=== PATIENT | female | born 1955 | race Caucasian/White ===

== ENCOUNTER → 2016-08-09 | Emergency (ER) | payer OTHER ==
[~2016-08-09] MED LIST: ALBUTEROL SO4 2.5/IPRATROPIUM 0.5 INH SOL 3 ML VIAL.NEB. NEB ONE; ASPIRIN 81 MG CHEWABLE TABLETS ONE; ASPIRIN 81 MG CHEWABLE TABLETS PO ONE
[2016-08-09 16:05] VITALS: BMI 29.6
[2016-08-09 17:09] LABS: BASOPHIL 0.7 % (0-2.0); EOSINOPHIL 2.1 % (0-4.5); MCH 29.7 pg (25.7-33.7); MCHC 33.3 g/dl (32.0-36.0); MEAN CELL VOLUME 89.3 fl (80-96); MEAN PLT VOLUME 9.5 fl (7.5-11.1); NEUTROPHILS 50.1 % (42.8-82.8); PLATELET COUNT 205 K/MM3 (134-434); RDW 13.8 % (11.6-15.6); WHITE BLOOD COUNT 7.8 K/mm3 (4.0-10.0)
--- NOTE | 2016-08-09 17:27 | PDOC ---
History of Present Illness - General History Source: Patient Exam Limitations: No Limitations <Nolan Navasie - Last Filed: 08/09/16 19:40> <Emmy Solitario - Last Filed: 08/09/16 21:59> - General Chief Complaint: Chest Pain Stated Complaint: DIFFICULTY BREATHING - History of Present Illness Initial Comments: 08/09/16 17:29 The patient is a 60-year-old female, with a significant past medical history of COPD and emphysema, who presents to the ED with 3 days of chest pain and shortness of breath. The patient describes the pain as chest heaviness that is worsened with deep inspiration. She states that the symptoms she is experiencing is similar to her prior visit to the hospital when she discovered that she had a collapsed lung. Her recent EKG appeared normal and the pts last stress test was done about 6 months ago and was also normal. Patient does report diaphoresis. Pt denies any fever, chills, nausea, vomiting, diarrhea, or abdominal pain. The patient denies any hx of blood clots or lower extremity swelling. PCP: Dr. Guerrero [employer] Work Supervisor: Dr. Anthony (Bruna Navas) Past History <Bruna Navas - Last Filed: 08/09/16 19:40> - Past Medical History Anemia: Yes Asthma: No Cancer: No Cardiac Disorders: No CVA: No COPD: Yes CHF: No Dementia: No Diabetes: No GI Disorders: Yes (DYSPEPSIA) Disorders: No HTN: No Hypercholesterolemia: Yes Liver Disease: No Seizures: No Thyroid Disease: No Other medical history: SPONT. PNEUMOTHORAX - Surgical History Abdominal Surgery: No Appendectomy: No Cardiac Surgery: No Cholecystectomy: No Lung Surgery: No Neurologic Surgery: No Orthopedic Surgery: No - Psycho/Social/Smoking Cessation Hx Anxiety: Yes Suicidal Ideation: No Smoking Status: Yes Smoking History: Former smoker Have you smoked in the past 12 months: No Number of Cigarettes Smoked Daily: 0 If you are a former smoker, when did you quit?: 20 YRS Information on smoking cessation initiated: No Hx Alcohol Use: No Drug/Substance Use Hx: No Substance Use Type: None Hx Substance Use Treatment: No <Emmy Solitario - Last Filed: 08/09/16 21:59> - Past Medical History Allergies/Adverse Reactions: Allergies Allergy/AdvReac Type Severity Reaction Status Date / Time No Known Allergies Allergy Verified 08/09/16 16:37 Home Medications: Ambulatory Orders Escitalopram Oxalate [Lexapro -] 10 mg PO DAILY 08/09/16 Tiotropium Mcgregor [Spiriva] 1 inh IH DAILY 08/09/16 Cardiac Specific PMH - Complaint Specific PMHX Pacemaker: No <Emmy Solitario - Last Filed: 08/09/16 21:59> Review of Systems - Review of Systems Able to Perform ROS?: Yes <Bruna Navas - Last Filed: 08/09/16 19:40> <Emmy Solitario - Last Filed: 08/09/16 21:59> - Review of Systems Comments:: 08/09/16 17:29 GENERAL/CONSTITUTIONAL: No fever or chills. No weakness. +diaphoresis HEAD, EYES, EARS, NOSE AND THROAT: No change in vision. No ear pain or discharge. No sore throat. CARDIOVASCULAR: +chest pain or shortness of breath. RESPIRATORY: No cough, wheezing, or hemoptysis. SKIN: No rash GASTROINTESTINAL: No nausea, vomiting, diarrhea or constipation. GENITOURINARY: No dysuria, frequency, or change in urination. MUSCULOSKELETAL: No joint or muscle swelling or pain. No neck or back pain. NEUROLOGIC: No headache, vertigo, loss of consciousness, or change in strength/ sensation. ENDOCRINE: No increased thirst. No abnormal weight change. HEMATOLOGIC/LYMPHATIC: No anemia, easy bleeding, or history of blood clots. ALLERGIC/IMMUNOLOGIC: No hives or skin allergy. (Bruna Navas) *Physical Exam <Bruna Navas - Last Filed: 08/09/16 19:40> <Emmy Solitario - Last Filed: 08/09/16 21:59> - Vital Signs Last Vital Signs Temp Pulse Resp BP Pulse Ox 98.4 F 73 17 130/66 96 08/09/16 20:18 08/09/16 20:18 08/09/16 20:18 08/09/16 20:18 08/09/16 20:18 - Physical Exam Comments: 08/09/16 17:33 GENERAL: Awake, alert, and fully oriented, in no acute distress HEAD: No signs of trauma ENT: Auricles normal inspection, hearing grossly normal, nares patent, oropharynx clear EYES: PERRLA, EOMI, sclera anicteric, conjunctiva clear without exudates. Moist mucosa. NECK: Normal ROM, supple, no lymphadenopathy, JVD, or masses LUNGS: Breath sounds equal, clear to auscultation bilaterally. No wheezes, and no crackles HEART: Regular rate and rhythm, normal S1 and S2, no murmurs, rubs or gallops ABDOMEN: Soft, nontender, normoactive bowel sounds. No guarding, no rebound. No masses EXTREMITIES: Normal range of motion, no edema. No clubbing or cyanosis. No cords, erythema, or tenderness NEUROLOGICAL: Normal speech. SKIN: Warm, Dry, normal turgor, no rashes or lesions noted (Bruna Navas) Heart Score/ECG Review - History History: Slightly suspicious - Electrocardiogram EKG: Normal - Age Age: 45-65 - Risk Factors Risk Factors Heart Score: Yes Hx Hypertension, Yes Smoking History Based on the list above the patient has:: 1-2 risk factors - Troponin Troponin: </= normal limit - Score Heart Score - Total: 2 #1 ECG reviewed & interpreted by me at: 16:15 General ECG Interpretation: Sinus Rhythm, Normal Rate (72), Normal Intervals, No acute ischemic changes Compared to previous ECG there are: No significant change - ECG Intrepretation Rhythm: Regular Rhythm - [place]: Normal <Emmy Solitario - Last Filed: 08/09/16 21:59> ED Treatment Course - LABORATORY CBC & Chemistry Diagram: 08/09/16 16:45 08/09/16 16:45 <Bruna Navas - Last Filed: 08/09/16 19:40> - LABORATORY CBC & Chemistry Diagram: 08/09/16 16:45 08/09/16 16:45 <Emmy Solitario - Last Filed: 08/09/16 21:59> - ADDITIONAL ORDERS Additional order review: Laboratory Results 08/09/16 08/09/16 08/09/16 20:45 16:45 16:45 Sodium 141 Potassium 4.1 Chloride 108 H Carbon Dioxide 23 D Anion Gap 10 BUN 15 Creatinine 0.6 Creat Clearance w eGFR > 60 Random Glucose 87 Calcium 9.3 Total Bilirubin 0.3 D AST 19 D ALT 34 D Alkaline Phosphatase 58 Creatine Kinase 67 64 Troponin I < 0.02 < 0.02 Total Protein 6.6 Albumin 4.1 D 08/09/16 16:45 RBC 4.39 D MCV 89.3 MCHC 33.3 RDW 13.8 MPV 9.5 Neutrophils % 50.1 Lymphocytes % 39.8 D Monocytes % 7.3 Eosinophils % 2.1 Basophils % 0.7 - RADIOLOGY Radiology Studies Ordered: Category Date Time Status CHEST PA & LAT [RAD] Stat Radiology 08/09/16 16:31 Taken - Medications Given in the ED: ED Medications Discontinued Medications Generic Name Dose Route Start Last Admin Trade Name Mike PRN Reason Stop Dose Admin Albuterol/Ipratropium 1 amp 08/09/16 16:43 08/09/16 17:07 Duoneb - NEB 08/09/16 16:44 1 amp ONCE ONE Administration Aspirin 162 mg 08/09/16 16:43 08/09/16 17:06 Asa - PO 08/09/16 16:44 162 mg ONCE ONE Administration Medical Decision Making <Bruna Navas - Last Filed: 08/09/16 19:40> <Emmy Solitario - Last Filed: 08/09/16 21:59> - Medical Decision Making 08/09/16 18:44 Dr. Guerrero was paged and notified via phone service. Second page was placed at 19:41. (Bruna Navas) 08/09/16 17:24 60 yo F with h/o emphysema, copd, bullae and h/o spont ptx, here with c/o chest pain. no n/v no fever or chills. does have cough .. here today because c/o chest heaviness, started 3 days ago. no f/c. not plueritic. no mod or aggravating factors. has albuterol but hasn't used becuase it was . uses spiriva daily. feels similar to prior when she had the ptx. no leg swelling. no ho pe or dvt. no radiation. does have mild sob. she had a stress test ~6 mo ago which was negative per pt. no family h/o cad. on exam: awake alert lungs clear nowheeze no crackles. heart RRR no mr/g. abd soft NT ext WWP. no edema no calf tendenres.s nuero awake alert oriented x 3 moves all ext. no weakness. differential copd, angina, ptx infeciton such as pna. pln ekg labs asa duoneb, and cxr. 08/09/16 21:50 pt with negative stress test in the last 6 months. no ptx on xray. rpt trop negative at 4 hours. will have follow up with outp with dr. guerrero. given referral to cardiology. dr. guerrero paged 3 x no response. dc with warning instructions. and albuterol inhaler rx. recommend asa daily. (Emmy Solitario) *DC/Admit/Observation/Transfer <Bruna Navas - Last Filed: 08/09/16 19:40> - Discharge Dispostion Admit: No <Emmy Solitario - Last Filed: 08/09/16 21:59> Diagnosis at time of Disposition: COPD (chronic obstructive pulmonary disease) - Discharge Dispostion Disposition: HOME - Referrals Referrals: Trevor Guerrero MD [Primary Care Provider] - Edwin Banks MD [Staff Physician] - - Patient Instructions Printed Discharge Instructions: DI for Atypical Chest Pain Additional Instructions: you should follow up with your cardiogist. call to schedule. if you do not have you can follow up with dr banks, see referral list for number . you should take baby aspirin daily 81 mg . return for recurrent pain . use albuterol 2 puffs inhaled every 4 hrs as needed for wheezing or coughing. - Attestations Scribe Attestion: 08/09/16 17:35 Documentation prepared by Bruna Navas, acting as medical office scheduler for Emmy Solitario MD. (Bruna Navas)
[2016-08-09 17:52] LABS: ALBUMIN 4.1 g/dl (3.4-5.0); ANION GAP 10 (8-16); CALCIUM 9.3 mg/dL (8.5-10.1); CO2 23 mmol/L (21-32); CREATININE 0.6 mg/dL (0.55-1.02); GLUCOSE,RANDOM 87 mg/dL (74-106); SGOT/AST 19 U/L (15-37); SGPT/ALT 34 U/L (12-78)
[2016-08-09 17:53] LABS: ALK PHOS 58 U/L (45-117); BILIRUBIN,TOTAL 0.3 mg/dL (0.2-1.0); TOT PROT 6.6 g/dl (6.4-8.2)
[2016-08-09 17:54] LABS: TROPONIN I < 0.02 ng/ml (0.00-0.05)
[2016-08-09 21:39] LABS: TROPONIN I < 0.02 ng/ml (0.00-0.05)
[2016-08-09 22:19] VITALS: BP 136/70; PULSE 74; TEMP 97.9
--- NOTE | 2016-08-10 16:39 | EKG ---
Test Reason : Blood Pressure : / mmHG Vent. Rate : 072 BPM Atrial Rate : 072 BPM P-R Int : 152 ms QRS Dur : 078 ms QT Int : 396 ms P-R-T Axes : 044 -02 033 degrees QTc Int : 433 ms NORMAL SINUS RHYTHM NORMAL ECG WHEN COMPARED WITH ECG OF 11-JAN-2015 11:29, T WAVE AMPLITUDE HAS DECREASED IN ANTERIOR LEADS Confirmed by DERICK CARTER MD ([id number]) on 08/10/2016 4:39:32 PM Referred By: Confirmed By:DERICK CARTER MD
== END | disposition home or self-care (01) ==
LOC: JER 15:50
PROC: 3E0F7GC Introduction of Other Therapeutic Substance into Respiratory Tract, Via Natural or Artificial Opening (ICD-10-PCS; principal; 2016-08-09)
DX: J44.9 Chronic obstructive pulmonary disease, unspecified (principal); I10 Essential (primary) hypertension; Z87.891 Personal history of nicotine dependence; E78.00 Pure hypercholesterolemia, unspecified; J93.83 Other pneumothorax
CPT/HCPCS: 36415; 71020-TC; 80053; 82550; 84484; 85025; 93005; 93010; 99284-25

== ENCOUNTER 2021-03-24 10:42 | Inpatient (IN) | payer MEDICARE, OTHER ==
[2021-03-24] MEDS ORDERED: ALBUTEROL SO4 2.5/IPRATROPIUM 0.5 INH SOL 3 ML VIAL.NEB. NEB ONE ×2 (11:44→11:56)
[2021-03-24] MEDS ORDERED: SOTROVIMAB 500 MG in SODIUM CHLORIDE 100 ML IVPB ONE (11:47)
[2021-03-24] MEDS ORDERED: DEXAMETHASONE 4 MG TABLET (FP) PO ONE (13:00)
[2021-03-24 13:34] LABS: BASO % 0.5 % (0-2.0); EOS % 1.7 % (0-4.5); HEMATOCRIT 43.3 % (32.4-45.2); HEMOGLOBIN 13.9 GM/dL (10.7-15.3); LYMPH % 27.3 % (8-40); MCH 29.3 pg (25.7-33.7); MCHC 32.1 g/dl (32.0-36.0); MEAN CELL VOLUME 91.4 fl (80-96); MEAN PLT VOLUME 9.4 fl (7.5-11.1); MONO % 12.8 % (3.8-10.2); NEUT % 57.7 % (42.8-82.8); PLATELET COUNT 222 10^3/uL (134-434); RBC 4.74 M/mm3 (3.60-5.2); RDW 14.7 % (11.6-15.6); WHITE BLOOD COUNT 6.4 K/mm3 (4.0-10.0)
[2021-03-24] MEDS ORDERED: DEXAMETHASONE 4 MG TABLET (FP) ONE (13:41)
[2021-03-24] MEDS ORDERED: DEXAMETHASONE SOD PHOSPHATE 10 MG/1 ML VIAL ONE (13:42)
[2021-03-24 13:54] LABS: CALCIUM 9.4 mg/dL (8.5-10.1)
[2021-03-24 13:55] LABS: ALBUMIN 3.8 g/dl (3.4-5.0); BLOOD UREA NITROGEN 12.7 mg/dL (7-18)
[2021-03-24 13:57] LABS: CREATININE 0.7 mg/dL (0.55-1.3)
[2021-03-24] MEDS ORDERED: ALBUTEROL SO4 0.083% IH SOL 2.5 MG/3 ML VIAL.NEB. NEB PRN (13:58)
[2021-03-24 13:59] LABS: BILIRUBIN,TOTAL 0.4 mg/dL (0.2-1); TOT PROT 6.8 g/dl (6.4-8.2)
[2021-03-25] MEDS: ACETAMINOPHEN 325 MG TABLET (FP) PO PRN (07:49)
[2021-03-25 09:07] LABS: BASO % 0.7 % (0-2.0); EOS % 0.1 % (0-4.5); HEMATOCRIT 37.6 % (32.4-45.2); HEMOGLOBIN 12.5 GM/dL (10.7-15.3); LYMPH % 37.1 % (8-40); MCHC 33.2 g/dl (32.0-36.0); MEAN CELL VOLUME 90.4 fl (80-96); MEAN PLT VOLUME 8.9 fl (7.5-11.1); MONO % 10.4 % (3.8-10.2); NEUT % 51.7 % (42.8-82.8); PLATELET COUNT 223 10^3/uL (134-434); RBC 4.16 M/mm3 (3.60-5.2); RDW 14.3 % (11.6-15.6); WHITE BLOOD COUNT 5.4 K/mm3 (4.0-10.0)
[2021-03-25 09:30] LABS: CALCIUM 9.4 mg/dL (8.5-10.1)
[2021-03-25 09:32] LABS: ALBUMIN 3.7 g/dl (3.4-5.0)
[2021-03-25 09:33] LABS: BLOOD UREA NITROGEN 19.7 mg/dL (7-18)
[2021-03-25 09:36] LABS: CREATININE 0.7 mg/dL (0.55-1.3)
[2021-03-25 09:38] LABS: BILIRUBIN,TOTAL 0.4 mg/dL (0.2-1); TOT PROT 6.4 g/dl (6.4-8.2)
[2021-03-25] MEDS ORDERED: DEXAMETHASONE SOD PHOSPHATE 20 MG/5 ML VIAL IVPB SCH (10:00)
[2021-03-25] MEDS ORDERED: TIOTROPIUM BROMIDE 2.5 MCG (SPIRIVA) RESPIMAT INHALER IH SCH (10:00)
[2021-03-25] MEDS: ESCITALOPRAM OXALATE 10 MG TABLET PO SCH (10:01)
[2021-03-25] MEDS: ENOXAPARIN NA (PORCINE) 40 MG/0.4 ML DISP.SYRIN SQ SCH (10:01)
[2021-03-25 10:20] LABS: ERYTHROCYTE SEDIMENTATION RATE 12 mm/hr (0-30)
[2021-03-25] MEDS: DEXAMETHASONE SOD PHOSPHATE 4 MG/1 ML VIAL IVPB SCH (11:33)
[2021-03-25] MEDS: FENOFIBRIC ACID 135 MG CAP PO SCH (15:38)
[2021-03-25] MEDS: MONTELUKAST NA 10 MG TABLET PO SCH (15:38)
[2021-03-25] MEDS: FLUTICASONE/UMECLIDIN/VILANTER(100-62.5-25 TRELEGY ELLIPTA) INAHLER IH SCH (17:53)
[2021-03-25] MEDS: guaiFENesin 200 MG/10 ML 10 ML UNIT-DOSE CUPS PO PRN (21:02)
[2021-03-26 10:34] LABS: BASO % 0.4 % (0-2.0); EOS % 0.2 % (0-4.5); HEMATOCRIT 36.9 % (32.4-45.2); HEMOGLOBIN 12.5 GM/dL (10.7-15.3); LYMPH % 37.9 % (8-40); MCH 30.6 pg (25.7-33.7); MCHC 33.8 g/dl (32.0-36.0); MEAN CELL VOLUME 90.6 fl (80-96); MEAN PLT VOLUME 8.5 fl (7.5-11.1); MONO % 5.8 % (3.8-10.2); NEUT % 55.7 % (42.8-82.8); PLATELET COUNT 206 10^3/uL (134-434); RBC 4.07 M/mm3 (3.60-5.2); WHITE BLOOD COUNT 6.6 K/mm3 (4.0-10.0)
[2021-03-26] MEDS: MONTELUKAST NA 10 MG TABLET PO SCH (10:54)
[2021-03-26] MEDS: ESCITALOPRAM OXALATE 10 MG TABLET PO SCH (10:54)
[2021-03-26] MEDS: ENOXAPARIN NA (PORCINE) 40 MG/0.4 ML DISP.SYRIN SQ SCH (10:54)
[2021-03-26] MEDS: DEXAMETHASONE SOD PHOSPHATE 4 MG/1 ML VIAL IVPB SCH (10:54)
[2021-03-26] MEDS: FENOFIBRIC ACID 135 MG CAP PO SCH (10:54)
[2021-03-26] MEDS: FLUTICASONE/UMECLIDIN/VILANTER(100-62.5-25 TRELEGY ELLIPTA) INAHLER IH SCH (10:54)
[2021-03-26 10:57] LABS: ALBUMIN 3.5 g/dl (3.4-5.0); BLOOD UREA NITROGEN 20.3 mg/dL (7-18)
[2021-03-26 10:58] LABS: CREATININE 0.7 mg/dL (0.55-1.3)
[2021-03-26 11:00] LABS: BILIRUBIN,TOTAL 0.3 mg/dL (0.2-1); TOT PROT 6.2 g/dl (6.4-8.2)
[2021-03-26] MEDS ORDERED: REMDESIVIR 200 MG in SODIUM CHLORIDE 250 ML IVPB ONE (11:00)
[2021-03-26] MEDS: guaiFENesin 200 MG/10 ML 10 ML UNIT-DOSE CUPS PO PRN (16:14)
[2021-03-26] MEDS: ACETAMINOPHEN 325 MG TABLET (FP) PO PRN (16:14)
[2021-03-27] MEDS: DEXAMETHASONE SOD PHOSPHATE 4 MG/1 ML VIAL IVPB SCH (10:45)
[2021-03-27] MEDS: guaiFENesin 200 MG/10 ML 10 ML UNIT-DOSE CUPS PO PRN (10:46)
[2021-03-27] MEDS: FENOFIBRIC ACID 135 MG CAP PO SCH (10:46)
[2021-03-27] MEDS: REMDESIVIR 100 MG in SODIUM CHLORIDE 250 ML IVPB SCH (10:46)
[2021-03-27] MEDS: ENOXAPARIN NA (PORCINE) 40 MG/0.4 ML DISP.SYRIN SQ SCH (10:46)
[2021-03-27] MEDS: ESCITALOPRAM OXALATE 10 MG TABLET PO SCH (10:46)
[2021-03-27] MEDS: MONTELUKAST NA 10 MG TABLET PO SCH (10:46)
[2021-03-27] MEDS: FLUTICASONE/UMECLIDIN/VILANTER(100-62.5-25 TRELEGY ELLIPTA) INAHLER IH SCH (10:47)
[2021-03-27] MEDS: ACETAMINOPHEN 325 MG TABLET (FP) PO PRN (20:41)
[2021-03-28] MEDS: ACETAMINOPHEN 325 MG TABLET (FP) PO PRN ×3 (06:14→18:30)
[2021-03-28] MEDS: MONTELUKAST NA 10 MG TABLET PO SCH (10:08)
[2021-03-28] MEDS: ESCITALOPRAM OXALATE 10 MG TABLET PO SCH (10:08)
[2021-03-28] MEDS: FENOFIBRIC ACID 135 MG CAP PO SCH (10:08)
[2021-03-28] MEDS: DEXAMETHASONE SOD PHOSPHATE 4 MG/1 ML VIAL IVPB SCH (10:08)
[2021-03-28] MEDS: ENOXAPARIN NA (PORCINE) 40 MG/0.4 ML DISP.SYRIN SQ SCH (10:13)
[2021-03-28] MEDS: FLUTICASONE/UMECLIDIN/VILANTER(100-62.5-25 TRELEGY ELLIPTA) INAHLER IH SCH (10:20)
[2021-03-28] MEDS: REMDESIVIR 100 MG in SODIUM CHLORIDE 250 ML IVPB SCH (10:30)
[2021-03-28] MEDS ORDERED: SODIUM CHLORIDE NASAL SPRAY 44 ML BOTTLE NS PRN (12:00)
[2021-03-28] MEDS: guaiFENesin 200 MG/10 ML 10 ML UNIT-DOSE CUPS PO PRN ×2 (12:33→18:30)
[2021-03-28] MEDS: FLUTICASONE PROP 0.05% 16 GM NASAL SPRAY NS SCH (12:33)
[2021-03-29] MEDS: ENOXAPARIN NA (PORCINE) 40 MG/0.4 ML DISP.SYRIN SQ SCH (10:27)
[2021-03-29] MEDS: FENOFIBRIC ACID 135 MG CAP PO SCH (10:27)
[2021-03-29] MEDS: MONTELUKAST NA 10 MG TABLET PO SCH (10:27)
[2021-03-29] MEDS: ESCITALOPRAM OXALATE 10 MG TABLET PO SCH (10:27)
[2021-03-29] MEDS: DEXAMETHASONE SOD PHOSPHATE 4 MG/1 ML VIAL IVPB SCH (10:27)
[2021-03-29] MEDS: REMDESIVIR 100 MG in SODIUM CHLORIDE 250 ML IVPB SCH (10:28)
[2021-03-29] MEDS: FLUTICASONE PROP 0.05% 16 GM NASAL SPRAY NS SCH (10:29)
[2021-03-29] MEDS: FLUTICASONE/UMECLIDIN/VILANTER(100-62.5-25 TRELEGY ELLIPTA) INAHLER IH SCH (10:40)
[2021-03-29] MEDS: ACETAMINOPHEN 325 MG TABLET (FP) PO PRN (22:52)
[2021-03-30] MEDS: ESCITALOPRAM OXALATE 10 MG TABLET PO SCH (09:04)
[2021-03-30] MEDS: ENOXAPARIN NA (PORCINE) 40 MG/0.4 ML DISP.SYRIN SQ SCH (09:04)
[2021-03-30] MEDS: FLUTICASONE/UMECLIDIN/VILANTER(100-62.5-25 TRELEGY ELLIPTA) INAHLER IH SCH (09:04)
[2021-03-30] MEDS: MONTELUKAST NA 10 MG TABLET PO SCH (09:04)
[2021-03-30] MEDS: FENOFIBRIC ACID 135 MG CAP PO SCH (09:04)
[2021-03-30] MEDS: DEXAMETHASONE SOD PHOSPHATE 4 MG/1 ML VIAL IVPB SCH (09:04)
[2021-03-30] MEDS: FLUTICASONE PROP 0.05% 16 GM NASAL SPRAY NS SCH (09:12)
[2021-03-30] MEDS: REMDESIVIR 100 MG in SODIUM CHLORIDE 250 ML IVPB SCH (11:14)
[2021-03-31] MEDS: ESCITALOPRAM OXALATE 10 MG TABLET PO SCH (09:07)
[2021-03-31] MEDS: ENOXAPARIN NA (PORCINE) 40 MG/0.4 ML DISP.SYRIN SQ SCH (09:07)
[2021-03-31] MEDS: FENOFIBRIC ACID 135 MG CAP PO SCH (09:07)
[2021-03-31] MEDS: MONTELUKAST NA 10 MG TABLET PO SCH (09:08)
[2021-03-31] MEDS: FLUTICASONE PROP 0.05% 16 GM NASAL SPRAY NS SCH (09:08)
[2021-03-31] MEDS: FLUTICASONE/UMECLIDIN/VILANTER(100-62.5-25 TRELEGY ELLIPTA) INAHLER IH SCH (09:08)
[2021-03-31] MEDS: DEXAMETHASONE SOD PHOSPHATE 4 MG/1 ML VIAL IVPB SCH (09:08)
[2021-03-31] MEDS: ACETAMINOPHEN 325 MG TABLET (FP) PO PRN (09:10)
[2021-03-31 11:43] VITALS: TEMP 98.1
[2021-03-31 14:07] VITALS: BP 140/65; PULSE 75
== END 2021-03-31 14:20 | disposition home or self-care (01) | DRG 178 ==
LOC: JER 10:42 → JERBED 12:56 → J5S 20:18
PROVIDERS: ADMIT Internal Medicine; ATTEND Internal Medicine
PROC: XW033H6 Introduction of Other New Technology Monoclonal Antibody into Peripheral Vein, Percutaneous Approach, New Technology Group 6 (ICD-10-PCS; 2021-03-24)
PROC: XW033E5 Introduction of Remdesivir Anti-infective into Peripheral Vein, Percutaneous Approach, New Technology Group 5 (ICD-10-PCS; principal; 2021-03-26)
DX: U07.1 COVID-19 (principal); J44.1 Chronic obstructive pulmonary disease with (acute) exacerbation; E78.5 Hyperlipidemia, unspecified; F41.9 Anxiety disorder, unspecified
CPT/HCPCS: 36415; 71046-TC-FY; 80053; 83615; 85025; 85379; 85651; 86140; 93005; 93010; 94761; 99285-25; C9399; C9803; M0247; Q0247; U0003; U0005

== ENCOUNTER 2021-04-13 13:03 | Inpatient (IN) | payer OTHER ==
[2021-04-13 14:48] LABS: BASO % 0.9 % (0-2.0); EOS % 2.1 % (0-4.5); HEMATOCRIT 40.3 % (32.4-45.2); HEMOGLOBIN 13.6 GM/dL (10.7-15.3); LYMPH % 23.7 % (8-40); MCH 30.6 pg (25.7-33.7); MCHC 33.7 g/dl (32.0-36.0); MEAN CELL VOLUME 90.8 fl (80-96); MEAN PLT VOLUME 9.3 fl (7.5-11.1); MONO % 11.5 % (3.8-10.2); NEUT % 61.8 % (42.8-82.8); PLATELET COUNT 174 10^3/uL (134-434); RBC 4.44 M/mm3 (3.60-5.2); RDW 14.2 % (11.6-15.6); WHITE BLOOD COUNT 5.2 K/mm3 (4.0-10.0)
[2021-04-13 15:00] LABS: ACTIVATED PTT 29.4 SECONDS (25.2-36.5); INR 0.99 (0.83-1.09); PROTHROMBIN TIME (PATIENT) 11.4 SEC (9.7-13.0)
[2021-04-13 15:19] LABS: CHLORIDE 109 mmol/L (98-107); SODIUM 136 mmol/L (136-145)
[2021-04-13 15:22] LABS: ALBUMIN 3.4 g/dl (3.4-5.0); BLOOD UREA NITROGEN 17.4 mg/dL (7-18); CALCIUM 8.8 mg/dL (8.5-10.1); CO2 24 mmol/L (21-32); GLUCOSE,RANDOM 82 mg/dL (74-106); MAGNESIUM 2.3 mg/dL (1.8-2.4)
[2021-04-13 15:25] LABS: CREATININE 0.4 mg/dL (0.55-1.3); SGOT/AST 81 U/L (15-37)
[2021-04-13 15:27] LABS: BILIRUBIN,TOTAL 0.6 mg/dL (0.2-1); TOT PROT 6.6 g/dl (6.4-8.2)
[2021-04-13 15:28] LABS: ALK PHOS 38 U/L (45-117)
[2021-04-13] MEDS ORDERED: ACETAMINOPHEN 325 MG TABLET (FP) PO PRN (15:53)
[2021-04-13] MEDS ORDERED: SODIUM CHLORIDE NASAL SPRAY 44 ML BOTTLE NS PRN (15:53)
[2021-04-13] MEDS ORDERED: guaiFENesin 200 MG/10 ML 10 ML UNIT-DOSE CUPS PO PRN (15:53)
[2021-04-13] MEDS ORDERED: ALBUTEROL SO4 0.083% IH SOL 2.5 MG/3 ML VIAL.NEB. NEB PRN (15:53)
[2021-04-13 15:54] LABS: ANION GAP 4 MMOL/L (8-16); SGPT/ALT 53 U/L (13-61)
[2021-04-13] MEDS ORDERED: ASPIRIN 81 MG CHEWABLE TABLETS PO ONE (15:56)
[2021-04-13] MEDS ORDERED: ASPIRIN 81 MG CHEWABLE TABLETS ONE (17:35)
[2021-04-13 18:14] LABS: ALBUMIN 3.5 g/dl (3.4-5.0); BLOOD UREA NITROGEN 15.2 mg/dL (7-18)
[2021-04-13 18:17] LABS: CREATININE 0.5 mg/dL (0.55-1.3)
[2021-04-13 18:19] LABS: BILIRUBIN,TOTAL 0.5 mg/dL (0.2-1); TOT PROT 5.9 g/dl (6.4-8.2)
[2021-04-13] MEDS ORDERED: ALBUTEROL SO4 HFA INHALER IH PRN (20:41)
[2021-04-13] MEDS: HEPARIN NA (PORCINE) 5,000 UNITS/ML 1ML VIAL SQ SCH (22:05)
[2021-04-13 23:28] VITALS: BMI 30.4
[2021-04-14] MEDS ORDERED: PATIENT'S OWN MEDICATION (NON-FORMULARY) (Tiotropium Bromide [Spiriva] 1 PUFF Inh) IH SCH (10:00)
[2021-04-14] MEDS ORDERED: FENOFIBRIC ACID 135 MG CAP PO SCH (10:00)
[2021-04-14] MEDS ORDERED: FAMOTIDINE 20 MG TABLET PO SCH (10:00)
[2021-04-14] MEDS ORDERED: MONTELUKAST NA 10 MG TABLET PO SCH (10:00)
[2021-04-14] MEDS ORDERED: FLUTICASONE PROP 0.05% 16 GM NASAL SPRAY NS SCH (10:00)
[2021-04-14] MEDS ORDERED: FLUTICASONE/UMECLIDIN/VILANTER(100-62.5-25 TRELEGY ELLIPTA) INAHLER IH SCH (10:00)
[2021-04-14] MEDS ORDERED: ESCITALOPRAM OXALATE 10 MG TABLET PO SCH (10:00)
[2021-04-14] MEDS: HEPARIN NA (PORCINE) 5,000 UNITS/ML 1ML VIAL SQ SCH (10:57)
[2021-04-14 18:29] VITALS: BP 129/98; PULSE 83; TEMP 98.2
== END 2021-04-14 18:44 | disposition home or self-care (01) | DRG 179 ==
LOC: JER 13:03 → JERBED 15:48 → OBSVTOIN 15:55 → J4S 21:35
PROVIDERS: ADMIT Internal Medicine; ATTEND Internal Medicine
DX: U07.1 COVID-19 (principal); R07.89 Other chest pain; J44.9 Chronic obstructive pulmonary disease, unspecified; E78.5 Hyperlipidemia, unspecified; F41.9 Anxiety disorder, unspecified; E66.9 Obesity, unspecified; Z68.30 Body mass index [BMI] 30.0-30.9, adult
CPT/HCPCS: 36415; 71046-TC-FY; 71275-TC; 80048; 80053; 82550; 82553; 83735; 84484; 85025; 85379; 85610; 85730; 93005; 93010; 93308; 93971-TC; 99285-25; C9803; G0378; J1644; Q9967; U0003; U0005

== ENCOUNTER 2022-01-19 11:20 | Inpatient (IN) | payer OTHER ==
[2022-01-19] MEDS ORDERED: ACETAMINOPHEN 1000 MG/100 ML BAG IVPB ONE ×2 (12:08→19:09)
[2022-01-19] MEDS ORDERED: SODIUM CHLORIDE 0.9% 1000 ML INFUS.BAG IV ONE (12:08)
[2022-01-19] MEDS ORDERED: ACETAMINOPHEN INJECTION 100 ML IVPB ONE ×2 (12:32→19:26)
[2022-01-19 12:42] LABS: HEMATOCRIT 42.6 % (32.4-45.2); HEMOGLOBIN 14.1 G/dL (10.7-15.3); MCH 30.6 pg (25.7-33.7); MCHC 33.1 g/dl (32.0-36.0); MEAN CELL VOLUME 92.6 fl (80-96); MEAN PLT VOLUME 8.3 fl (7.5-11.1); PLATELET COUNT 254.4 10^3/uL (134-434); RDW 14.5 % (11.6-15.6); WHITE BLOOD COUNT 17.2 10^3/uL (4.0-10.8)
[2022-01-19 12:46] LABS: INR 1.03 (0.83-1.09); PROTHROMBIN TIME (PATIENT) 11.8 SEC (9.7-13.0)
[2022-01-19 12:48] LABS: ACTIVATED PTT 27.7 SECONDS (25.2-36.5)
[2022-01-19 12:52] LABS: ALBUMIN 3.5 g/dl (3.4-5.0); BILIRUBIN,TOTAL 0.9 mg/dl (0.2-1); CALCIUM 8.6 mg/dl (8.5-10); CREATININE 0.6 mg/dl (0.55-1.3); TOT PROT 5.9 g/dl (6.4-8.2)
[2022-01-19 13:13] LABS: PLATELET ESTIMATE ADEQUATE
[2022-01-19] MEDS ORDERED: PIPERACILLIN/TAZOB 3.375 GM 3.375 GM in DEXTROSE 5%-WATER - 50 ML IVPB ONE (16:31)
[2022-01-19] MEDS ORDERED: PIPERACILLIN/TAZOBACTAM 3.375 GM VIAL IVPB ONE (16:45)
[2022-01-19] MEDS ORDERED: ALBUTEROL SO4 0.083% IH SOL 2.5 MG/3 ML VIAL.NEB. NEB PRN (17:04)
[2022-01-19] MEDS: PIPERACILLIN/TAZOB 3.375 GM 3.375 GM in DEXTROSE 5%-WATER - 50 ML IVPB SCH (17:19)
[2022-01-19] MEDS ORDERED: HEPARIN NA (PORCINE) 5,000 UNITS/ML 1ML VIAL SQ SCH (22:00)
[2022-01-20] MEDS: ACETAMINOPHEN 325 MG TABLET (FP) PO PRN ×2 (01:22→12:01)
[2022-01-20] MEDS: PIPERACILLIN/TAZOB 3.375 GM 3.375 GM in DEXTROSE 5%-WATER - 50 ML IVPB SCH ×4 (01:22→19:47)
[2022-01-20 08:42] LABS: ALBUMIN 2.9 g/dl (3.4-5.0); BILIRUBIN,TOTAL 0.9 mg/dl (0.2-1); CALCIUM 8.3 mg/dl (8.5-10); CREATININE 0.5 mg/dl (0.55-1.3); TOT PROT 4.9 g/dl (6.4-8.2)
[2022-01-20] MEDS ORDERED: FLUTICASONE/UMECLIDIN/VILANTER(100-62.5-25 TRELEGY ELLIPTA) INAHLER IH SCH (10:00)
[2022-01-20] MEDS ORDERED: MONTELUKAST NA 10 MG TABLET PO SCH (10:00)
[2022-01-20] MEDS ORDERED: FENOFIBRIC ACID 135 MG CAP PO SCH (10:00)
[2022-01-20] MEDS ORDERED: ESCITALOPRAM OXALATE 10 MG TABLET PO SCH (10:00)
[2022-01-20] MEDS ORDERED: PATIENT'S OWN MEDICATION (NON-FORMULARY) (Fenofibrate Nanocrystallized [Fenofibrate] 145 M PO SCH (10:00)
[2022-01-20] MEDS ORDERED: PANTOPRAZOLE 40 MG TABLET PO SCH (10:00)
[2022-01-20 15:15] LABS: BASO % 0.4 % (0-2.0); HEMATOCRIT 38.6 % (32.4-45.2); HEMOGLOBIN 12.3 GM/dL (10.7-15.3); LYMPH % 17.3 % (8-40); MCH 29.9 pg (25.7-33.7); MCHC 31.9 g/dl (32.0-36.0); MEAN CELL VOLUME 93.5 fl (80-96); MEAN PLT VOLUME 8.9 fl (7.5-11.1); MONO % 6.9 % (3.8-10.2); NEUT % 74.4 % (42.8-82.8); PLATELET COUNT 199 10^3/uL (134-434); RBC 4.13 M/mm3 (3.60-5.2); RDW 15.2 % (11.6-15.6); WHITE BLOOD COUNT 12.1 K/mm3 (4.0-10.0)
[2022-01-20] MEDS ORDERED: ALBUTEROL SO4 0.083% IH SOL 2.5 MG/3 ML VIAL.NEB. NEB PRN (19:40)
[2022-01-21] MEDS: PIPERACILLIN/TAZOB 3.375 GM 3.375 GM in DEXTROSE 5%-WATER - 50 ML IVPB SCH ×3 (02:31→17:10)
[2022-01-21] MEDS: ACETAMINOPHEN 325 MG TABLET (FP) PO PRN ×2 (02:31→10:54)
[2022-01-21 09:47] LABS: BASO % 0.4 % (0-2.0); EOS % 2.2 % (0-4.5); HEMATOCRIT 37.7 % (32.4-45.2); HEMOGLOBIN 12.4 GM/dL (10.7-15.3); LYMPH % 26.3 % (8-40); MCH 30.1 pg (25.7-33.7); MCHC 32.9 g/dl (32.0-36.0); MEAN CELL VOLUME 91.5 fl (80-96); MEAN PLT VOLUME 8.6 fl (7.5-11.1); MONO % 7.6 % (3.8-10.2); NEUT % 63.5 % (42.8-82.8); PLATELET COUNT 200 10^3/uL (134-434); RBC 4.12 M/mm3 (3.60-5.2); RDW 14.2 % (11.6-15.6)
[2022-01-21 09:59] LABS: CALCIUM 8.5 mg/dL (8.5-10.1)
[2022-01-21 10:00] LABS: ALBUMIN 2.7 g/dl (3.4-5.0); BLOOD UREA NITROGEN 9.8 mg/dL (7-18)
[2022-01-21 10:03] LABS: CREATININE 0.5 mg/dL (0.55-1.3)
[2022-01-21 10:05] LABS: BILIRUBIN,TOTAL 0.9 mg/dL (0.2-1); TOT PROT 5.2 g/dl (6.4-8.2)
[2022-01-21] MEDS: PANTOPRAZOLE 40 MG TABLET PO SCH (10:10)
[2022-01-21] MEDS: FLUTICASONE/UMECLIDIN/VILANTER(100-62.5-25 TRELEGY ELLIPTA) INAHLER IH SCH (10:11)
[2022-01-21] MEDS: ESCITALOPRAM OXALATE 10 MG TABLET PO SCH (10:11)
[2022-01-21] MEDS: FENOFIBRIC ACID 135 MG CAP PO SCH (10:54)
[2022-01-21] MEDS ORDERED: SODIUM CHLORIDE 1,000 ML IV SCH (12:45)
[2022-01-21] MEDS: MONTELUKAST NA 10 MG TABLET PO SCH (21:26)
[2022-01-22] MEDS: PIPERACILLIN/TAZOB 3.375 GM 3.375 GM in DEXTROSE 5%-WATER - 50 ML IVPB SCH ×3 (02:11→17:07)
[2022-01-22] MEDS: FENOFIBRIC ACID 135 MG CAP PO SCH (09:57)
[2022-01-22] MEDS: PANTOPRAZOLE 40 MG TABLET PO SCH (09:57)
[2022-01-22] MEDS: FLUTICASONE/UMECLIDIN/VILANTER(100-62.5-25 TRELEGY ELLIPTA) INAHLER IH SCH (09:57)
[2022-01-22] MEDS: ESCITALOPRAM OXALATE 10 MG TABLET PO SCH (09:57)
[2022-01-22 11:13] LABS: BASO % 0.9 % (0-2.0); EOS % 3.3 % (0-4.5); HEMOGLOBIN 12.4 GM/dL (10.7-15.3); MCH 30.2 pg (25.7-33.7); MCHC 32.8 g/dl (32.0-36.0); MEAN PLT VOLUME 8.5 fl (7.5-11.1); MONO % 8.1 % (3.8-10.2); NEUT % 57.7 % (42.8-82.8); PLATELET COUNT 211 10^3/uL (134-434); RBC 4.13 M/mm3 (3.60-5.2); RDW 14.4 % (11.6-15.6); WHITE BLOOD COUNT 5.7 K/mm3 (4.0-10.0)
[2022-01-22 11:21] LABS: ALBUMIN 2.9 g/dl (3.4-5.0); CALCIUM 8.6 mg/dL (8.5-10.1)
[2022-01-22 11:22] LABS: BLOOD UREA NITROGEN 7.1 mg/dL (7-18)
[2022-01-22 11:24] LABS: CREATININE 0.6 mg/dL (0.55-1.3)
[2022-01-22 11:26] LABS: BILIRUBIN,TOTAL 0.4 mg/dL (0.2-1); TOT PROT 5.5 g/dl (6.4-8.2)
[2022-01-22] MEDS ORDERED: FLUCONAZOLE 150 MG TABLET PO ONE (18:02)
[2022-01-22] MEDS: MONTELUKAST NA 10 MG TABLET PO SCH (22:44)
[2022-01-23 01:23] LABS: PH,URINE 6.5 (5.0-8.0); URINE APPEARANCE CLEAR; URINE BILIRUBIN NEGATIVE (NEGATIVE); URINE COLOR YELLOW; URINE GLUCOSE (UA) NEGATIVE (NEGATIVE); URINE KETONE NEGATIVE (NEGATIVE); URINE LEUK ESTERASE NEGATIVE (NEGATIVE); URINE NITRITE NEGATIVE (NEGATIVE); URINE PROTEIN NEGATIVE (NEGATIVE)
[2022-01-23] MEDS: PIPERACILLIN/TAZOB 3.375 GM 3.375 GM in DEXTROSE 5%-WATER - 50 ML IVPB SCH ×3 (02:17→19:20)
[2022-01-23] MEDS: PANTOPRAZOLE 40 MG TABLET PO SCH (10:09)
[2022-01-23] MEDS: FENOFIBRIC ACID 135 MG CAP PO SCH (10:09)
[2022-01-23] MEDS: ESCITALOPRAM OXALATE 10 MG TABLET PO SCH (10:09)
[2022-01-23] MEDS: FLUTICASONE/UMECLIDIN/VILANTER(100-62.5-25 TRELEGY ELLIPTA) INAHLER IH SCH (10:15)
[2022-01-23 11:49] LABS: BASO % 0.7 % (0-2.0); EOS % 3.7 % (0-4.5); HEMATOCRIT 37.2 % (32.4-45.2); HEMOGLOBIN 12.2 GM/dL (10.7-15.3); LYMPH % 33.5 % (8-40); MCH 30.2 pg (25.7-33.7); MCHC 32.8 g/dl (32.0-36.0); MEAN PLT VOLUME 8.6 fl (7.5-11.1); MONO % 6.5 % (3.8-10.2); NEUT % 55.6 % (42.8-82.8); PLATELET COUNT 209 10^3/uL (134-434); RBC 4.05 M/mm3 (3.60-5.2); RDW 14.3 % (11.6-15.6); WHITE BLOOD COUNT 5.4 K/mm3 (4.0-10.0)
[2022-01-23 12:35] LABS: CALCIUM 8.8 mg/dL (8.5-10.1)
[2022-01-23 12:36] LABS: ALBUMIN 2.8 g/dl (3.4-5.0); BLOOD UREA NITROGEN 8.1 mg/dL (7-18)
[2022-01-23 12:37] LABS: CREATININE 0.5 mg/dL (0.55-1.3)
[2022-01-23 12:39] LABS: BILIRUBIN,TOTAL 0.5 mg/dL (0.2-1); TOT PROT 5.4 g/dl (6.4-8.2)
[2022-01-23] MEDS: SODIUM CHLORIDE 0.45% 1,000 ML IV SCH (19:21)
[2022-01-23] MEDS: POLYETHYLENE GLYCOL 3350 255 GM BTL PO ONE (19:22)
[2022-01-23] MEDS: MONTELUKAST NA 10 MG TABLET PO SCH (22:42)
[2022-01-24] MEDS: PIPERACILLIN/TAZOB 3.375 GM 3.375 GM in DEXTROSE 5%-WATER - 50 ML IVPB SCH ×3 (02:22→18:54)
[2022-01-24 09:59] LABS: BASO % 0.7 % (0-2.0); EOS % 3.4 % (0-4.5); HEMATOCRIT 38.1 % (32.4-45.2); HEMOGLOBIN 12.5 GM/dL (10.7-15.3); LYMPH % 34.7 % (8-40); MCHC 32.8 g/dl (32.0-36.0); MEAN CELL VOLUME 91.4 fl (80-96); MEAN PLT VOLUME 8.7 fl (7.5-11.1); MONO % 7.5 % (3.8-10.2); NEUT % 53.7 % (42.8-82.8); PLATELET COUNT 222 10^3/uL (134-434); RBC 4.17 M/mm3 (3.60-5.2); RDW 14.3 % (11.6-15.6); WHITE BLOOD COUNT 5.3 K/mm3 (4.0-10.0)
[2022-01-24 10:05] LABS: INR 1.01 (0.83-1.09); PROTHROMBIN TIME (PATIENT) 11.6 SEC (9.7-13.0)
[2022-01-24] MEDS: ESCITALOPRAM OXALATE 10 MG TABLET PO SCH (10:32)
[2022-01-24] MEDS: FLUTICASONE/UMECLIDIN/VILANTER(100-62.5-25 TRELEGY ELLIPTA) INAHLER IH SCH (10:32)
[2022-01-24] MEDS: PANTOPRAZOLE 40 MG TABLET PO SCH (10:32)
[2022-01-24] MEDS: FENOFIBRIC ACID 135 MG CAP PO SCH (10:32)
[2022-01-24 11:48] LABS: BLOOD UREA NITROGEN 5.6 mg/dL (7-18); CALCIUM 8.8 mg/dL (8.5-10.1)
[2022-01-24 11:52] LABS: CREATININE 0.5 mg/dL (0.55-1.3)
[2022-01-24] MEDS ORDERED: POLYETHYLENE GLYCOL 3350 255 GM BTL PO ONE (17:00)
[2022-01-24] MEDS: POLYETHYLENE GLYCOL 3350 255 GM BTL PO ONE (17:17)
[2022-01-24] MEDS: SODIUM CHLORIDE 0.45% 1,000 ML IV SCH (17:28)
[2022-01-24] MEDS ORDERED: ONDANSETRON 4 MG/2 ML VIAL IVPUSH PRN (21:14)
[2022-01-24] MEDS: MONTELUKAST NA 10 MG TABLET PO SCH (21:35)
[2022-01-25] MEDS: PIPERACILLIN/TAZOB 3.375 GM 3.375 GM in DEXTROSE 5%-WATER - 50 ML IVPB SCH ×3 (01:59→17:22)
[2022-01-25] MEDS: FENOFIBRIC ACID 135 MG CAP PO SCH (09:42)
[2022-01-25] MEDS: ESCITALOPRAM OXALATE 10 MG TABLET PO SCH (09:46)
[2022-01-25] MEDS: PANTOPRAZOLE 40 MG TABLET PO SCH (09:46)
[2022-01-25 10:30] LABS: HEMATOCRIT 32.5 % (32.4-45.2); HEMOGLOBIN 10.7 GM/dL (10.7-15.3); MCH 30.3 pg (25.7-33.7); MEAN CELL VOLUME 91.8 fl (80-96); MEAN PLT VOLUME 9.1 fl (7.5-11.1); PLATELET COUNT 123 10^3/uL (134-434); RBC 3.54 M/mm3 (3.60-5.2); RDW 14.2 % (11.6-15.6); WHITE BLOOD COUNT 4.8 K/mm3 (4.0-10.0)
[2022-01-25 10:42] LABS: CALCIUM 8.6 mg/dL (8.5-10.1)
[2022-01-25 10:43] LABS: BLOOD UREA NITROGEN 3.8 mg/dL (7-18)
[2022-01-25 10:46] LABS: CREATININE 0.6 mg/dL (0.55-1.3)
[2022-01-25 11:12] LABS: ANISOCYTOSIS 0; HELMET CELLS 0; HOWELL-JOLLY BODIES 0; MACROCYTOSIS 0; OVALOCYTE 0; ROULEAU 0; SICKELED CELLS 0; TARGET CELLS 0; TEAR DROP CELLS 0; TOXIC GRANULATION 0
[2022-01-25 11:21] LABS: INR 1.28 (0.83-1.09); PROTHROMBIN TIME (PATIENT) 14.8 SEC (9.7-13.0)
[2022-01-25] MEDS: FLUTICASONE/UMECLIDIN/VILANTER(100-62.5-25 TRELEGY ELLIPTA) INAHLER IH SCH (14:21)
[2022-01-25] MEDS: SODIUM CHLORIDE 0.45% 1,000 ML IV SCH (14:21)
[2022-01-25 15:55] VITALS: BMI 29.8
[2022-01-25 22:18] VITALS: RESP 20
[2022-01-25] MEDS: MONTELUKAST NA 10 MG TABLET PO SCH (23:20)
[2022-01-26] MEDS: PIPERACILLIN/TAZOB 3.375 GM 3.375 GM in DEXTROSE 5%-WATER - 50 ML IVPB SCH ×2 (02:34→10:37)
[2022-01-26] MEDS: ESCITALOPRAM OXALATE 10 MG TABLET PO SCH (10:37)
[2022-01-26] MEDS: FENOFIBRIC ACID 135 MG CAP PO SCH (10:37)
[2022-01-26] MEDS: PANTOPRAZOLE 40 MG TABLET PO SCH (10:37)
[2022-01-26] MEDS: FLUTICASONE/UMECLIDIN/VILANTER(100-62.5-25 TRELEGY ELLIPTA) INAHLER IH SCH (10:38)
[2022-01-26 12:25] VITALS: BP 105/75; PULSE 78; TEMP 99
== END 2022-01-26 13:33 | disposition home or self-care (01) | DRG 378 ==
LOC: FER 11:20 → FM/S 22:12 → J8W 01-20 19:26
PROVIDERS: ADMIT Internal Medicine; ATTEND Internal Medicine
PROC: 0DBP8ZX Excision of Rectum, Via Natural or Artificial Opening Endoscopic, Diagnostic (ICD-10-PCS; 2022-01-25)
PROC: 0DBH8ZX Excision of Cecum, Via Natural or Artificial Opening Endoscopic, Diagnostic (ICD-10-PCS; 2022-01-25)
PROC: 0DBB8ZX Excision of Ileum, Via Natural or Artificial Opening Endoscopic, Diagnostic (ICD-10-PCS; 2022-01-25)
PROC: 0DBM8ZX Excision of Descending Colon, Via Natural or Artificial Opening Endoscopic, Diagnostic (ICD-10-PCS; 2022-01-25)
PROC: 0DBN8ZX Excision of Sigmoid Colon, Via Natural or Artificial Opening Endoscopic, Diagnostic (ICD-10-PCS; principal; 2022-01-25 11:00)
DX: K62.5 Hemorrhage of anus and rectum (principal); A09 Infectious gastroenteritis and colitis, unspecified; K55.9 Vascular disorder of intestine, unspecified; K57.90 Diverticulosis of intestine, part unspecified, without perforation or abscess without bleeding; K64.8 Other hemorrhoids; K63.5 Polyp of colon; I10 Essential (primary) hypertension; K21.9 Gastro-esophageal reflux disease without esophagitis; E78.5 Hyperlipidemia, unspecified; D72.829 Elevated white blood cell count, unspecified
CPT/HCPCS: 0241U-QW; 36415; 74177-TC; 80048; 80053; 81003; 82272; 83605; 85025; 85027; 85610; 85651; 85730; 86140; 86850; 86900; 86901; 87040; 87045; 87046; 87086; 87205; 87207; 87209; 87324; 87328; 87329; 87425; 87449; 87798; 88305-TC; 93005; 99285-25

== ENCOUNTER 2023-01-15 04:40 | Day surgery (SDC) | payer OTHER ==
[2023-01-11 15:37] VITALS: BMI 32.1
[2023-01-15 10:17] VITALS: TEMP 97.8
[2023-01-15 10:54] VITALS: BP 160/70; PULSE 83; RESP 20
== END 2023-01-15 10:40 | disposition home or self-care (01) ==
LOC: JASU-ENDO 04:40
PROVIDERS: ATTEND Internal Medicine Gastroenterology
PROC: 0DB78ZX Excision of Stomach, Pylorus, Via Natural or Artificial Opening Endoscopic, Diagnostic (ICD-10-PCS; 2023-01-15)
PROC: 0DB68ZX Excision of Stomach, Via Natural or Artificial Opening Endoscopic, Diagnostic (ICD-10-PCS; 2023-01-15)
PROC: 0DB48ZX Excision of Esophagogastric Junction, Via Natural or Artificial Opening Endoscopic, Diagnostic (ICD-10-PCS; 2023-01-15)
PROC: 0DB98ZX Excision of Duodenum, Via Natural or Artificial Opening Endoscopic, Diagnostic (ICD-10-PCS; principal; 2023-01-15 11:00)
DX: K21.00 Gastro-esophageal reflux disease with esophagitis, without bleeding (principal); K29.50 Unspecified chronic gastritis without bleeding
CPT/HCPCS: 88305-TC; 88342-TC

== ENCOUNTER 2023-07-29 19:09 | Emergency (ER) | payer OTHER ==
[2023-07-29 19:21] VITALS: BP 131/81; PULSE 100; RESP 20; TEMP 97.9; BMI 29.5
[2023-07-29] MEDS ORDERED: ALBUTEROL SO4 2.5/IPRATROPIUM 0.5 INH SOL 3 ML VIAL.NEB. NEB ONE ×2 (20:09→21:03)
[2023-07-29] MEDS ORDERED: methylPREDNISolone NA SUCC 125 MG/2 ML VIAL ONE (20:09)
[2023-07-29] MEDS: ALBUTEROL SO4 2.5/IPRATROPIUM 0.5 INH SOL 3 ML VIAL.NEB. NEB ONE ×3 (20:19→21:05)
[2023-07-29] MEDS: methylPREDNISolone NA SUCC 125 MG/2 ML VIAL IVPUSH ONE (20:19)
[2023-07-29 20:34] LABS: HEMATOCRIT 44.5 % (32.4-45.2); HEMOGLOBIN 14.5 G/dL (10.7-15.3); MCH 30.3 pg (25.7-33.7); MCHC 32.7 g/dl (32.0-36.0); MEAN CELL VOLUME 92.8 fl (80-96); RBC 4.79 10^6/uL (3.60-5.2); RDW 14.8 % (11.6-15.6)
[2023-07-29 20:46] LABS: ALBUMIN 4.2 g/dl (3.4-5.0); ALK PHOS 47 U/L (45-117); ANION GAP 10 mmol/L (4-13); BILIRUBIN,TOTAL 0.4 mg/dl (0.2-1); CALCIUM 9.7 mg/dl (8.5-10.1); CHLORIDE 103 mmol/L (98-107); CO2 24 mmol/L (21-32); CREATININE 0.9 mg/dl (0.6-1.3); GLUCOSE,RANDOM 123 mg/dl (74-106); SGOT/AST 37 U/L (15-37); SGPT/ALT 35 U/L (7-52); SODIUM 137 mmol/L (136-145); TOT PROT 6.8 g/dl (6.4-8.2)
[2023-07-29 20:48] LABS: POTASSIUM 5.5 mmol/L (3.5-5.1)
[2023-07-29] MEDS ORDERED: guaiFENesin/CODEINE 10 ML UNIT-DOSE CUPS ONE (21:03)
[2023-07-29] MEDS: guaiFENesin/CODEINE 5 ML UNIT-DOSE CUPS PO PRN (21:05)
[2023-07-29] MEDS ORDERED: guaiFENesin/CODEINE 10 ML UNIT-DOSE CUPS PO PRN (21:07)
[2023-07-29 21:11] LABS: PLATELET ESTIMATE ADEQUATE
== END 2023-07-29 21:34 | disposition home or self-care (01) ==
LOC: FER 19:09
PROC: 3E033GC Introduction of Other Therapeutic Substance into Peripheral Vein, Percutaneous Approach (ICD-10-PCS; principal; 2023-07-29)
PROC: 3E0F7GC Introduction of Other Therapeutic Substance into Respiratory Tract, Via Natural or Artificial Opening (ICD-10-PCS; 2023-07-29)
PROC: 3E0F7GC Introduction of Other Therapeutic Substance into Respiratory Tract, Via Natural or Artificial Opening (ICD-10-PCS; 2023-07-29)
DX: J44.1 Chronic obstructive pulmonary disease with (acute) exacerbation (principal); R05.9 Cough, unspecified; R06.2 Wheezing; R00.0 Tachycardia, unspecified
CPT/HCPCS: 36415; 71046-TC-FY; 80053; 85027; 93005; 99285-25